=== PATIENT | female | born 1990 | race African-American/Black ===

== ENCOUNTER 2018-01-31 09:23 | Emergency (ER) | payer MEDICAID ==
[~2018-01-31] VITALS: Ht 177.8 cm; Wt 65.4 kg
[2018-01-31 09:47] VITALS: BP 116/71
[2018-01-31 10:49] LABS: CLARITY URINE CLOUDY (CLEAR); COLOR URINE YELLOW (YELLOW); KETONES URINE TRACE (NEGATIVE); LEUKOCYTE ESTERASE URINE 2+ (NEGATIVE); NITRITE URINE NEGATIVE (NEGATIVE); OCCULT BLOOD URINE 3+ (NEGATIVE); PH URINE 7.5 (4.5-8.0); PROTEIN URINE 2+ (NEGATIVE); SPECIFIC GRAVITY URINE 1.022 (1.005-1.030); UROBILINOGEN URINE 0.2 E.U./dL (0.2-1.0)
== END 2018-01-31 12:01 | disposition left against medical advice (07) ==
LOC: ER 09:58
DX: Z53.21 Procedure and treatment not carried out due to patient leaving prior to being seen by health care provider (principal)